=== PATIENT | male | born 1990 | race Caucasian/White ===

== ENCOUNTER 2020-08-16 10:02 | Emergency (ER) | payer OTHER, SELFPAY ==
[2020-08-16 10:09] VITALS: BP 110/74; PULSE 68; RESP 16; TEMP 37.2; O2SAT 99
--- NOTE | 2020-08-16 10:31 | ED.SKABFB ---
HPI - Skin/Abscess/Foreign Bdy General Chief complaint: Skin/Abscess/Foreign Body Stated complaint: pos bug bite Source: patient Mode of arrival: ambulatory Limitations: no limitations History of Present Illness HPI narrative: Patient is a 30-year-old male who presents with complaints of bite to right cheek. Patient reports initially having pus and discharge at onset. Reports redness and tenderness with palpation. Denies known insect bite. Denies significant medical history or use of topical medication for symptoms. MD complaint: abscess/boil and lesion Related Data Home Medications Medication Instructions Recorded Confirmed Adderall 08/16/20 Allergies Allergy/AdvReac Type Severity Reaction Status Date / Time No Known Allergies Allergy Verified 08/16/20 10:12 Review of Systems Review of Systems: Narrative: CONSTITUTIONAL: Denies fever, chills, or sweats. EYES: Denies visual changes, redness, or discharge. ENT: Denies rhinorrhea, congestion, sore throat, or otalgia. CARDIOVASCULAR: Denies chest pain, palpitations, or edema. RESPIRATORY: Denies cough or dyspnea. GASTROINTESTINAL: Denies abdominal pain, nausea, vomiting, or diarrhea. GENITOURINARY: Denies dysuria or hematuria. SKIN: Redness and tenderness to left cheek MUSCULOSKELETAL: Denies back pain, joint pain, or myalgia. NEUROLOGIC: Denies headache, numbness, dizziness, or weakness. PSYCHIATRIC: Denies anxiety or depression. [facility] Past Medical History Medical History No significant past medical history Surgical History Surgical History History of appendectomy Family History Family History Other No significant family history Social History Social History Smoking status: Never smoker Alcohol intake: current Alcohol use details: Occasional Substance use: never Living arrangements: with family Occupation/Education: occupation Gender identity (if verbalized by the patient): Male Comments At the time of signature, I have reviewed and agree with nursing past medical, surgical, social, and family history unless otherwise noted. Please see nursing chart for further information. There is no relevant family history pertinent to the presenting complaint. Exam Narrative: Exam Narrative: GENERAL: Well-appearing, well-nourished, and in no acute distress. HEAD: Normocephalic, atraumatic. EYES:No redness or drainage. ENT: Mucous membranes pink and moist. CHEST: No respiratory distress. HEART: Regular rate and rhythm. EXTREMITIES: Normal range of motion. SKIN: Approximately 1 cm circular area of erythema with mild edema to the left cheek NEURO: No focal deficits. Alert and oriented x3. Gait steady. PSYCH: Normal affect. No signs of depression or anxiety. Course Vital Signs Vital signs: Vital Signs Temperature 37.2 C 08/16/20 10:09 Pulse Rate 68 08/16/20 10:09 Respiratory Rate 16 08/16/20 10:09 Blood Pressure 110/74 08/16/20 10:09 Pulse Oximetry 99 08/16/20 10:09 Temperature 37.2 C 08/16/20 10:09 Pulse Rate 68 08/16/20 10:09 Respiratory Rate 16 08/16/20 10:09 Blood Pressure 110/74 08/16/20 10:09 Pulse Oximetry 99 08/16/20 10:09 Reviewed MDM - Skin/Abscess/Foreign Bdy MDM Narrative Medical decision making narrative: Patient appears nontoxic. Patient appears to have a small cellulitic area or possible folliculitis to left cheek. Patient reports drainage on Saturday. Erythema noted. 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 Patient started on oral antibiotics as well as a topical treatment. Patient is aware of the need to follow-up with his PCP in 3 to 5 days
== END 2020-08-16 10:31 | disposition home or self-care (01) ==
PROVIDERS: Emergency Provider Nurse Practitioner
DX: L03.211 Cellulitis of face (principal)
CPT/HCPCS: 99213; G0463